=== PATIENT | female | born 1990 | race African-American/Black ===

== ENCOUNTER 2017-06-24 10:32 | Emergency (ER) | payer OTHER ==
[~2017-06-24] VITALS: Ht 172.7 cm; Wt 52.2 kg
[2017-06-24 10:38] VITALS: BP 131/73
== END 2017-06-24 11:08 | disposition home or self-care (01) ==
LOC: ER 10:38
DX: J40 Bronchitis, not specified as acute or chronic (principal)
CPT/HCPCS: 99283; A4606; Z7610

== ENCOUNTER 2018-05-26 21:35 | Emergency (ER) | payer OTHER ==
[~2018-05-26] VITALS: Ht 172.7 cm; Wt 49.0 kg
[2018-05-26 21:53] VITALS: BP 100/76
--- NOTE | 2018-05-26 23:49 | NUR ---
CALLED PT'S NAME THREE TIMES, NO RESPONSE. PT LEFT WITHOUT BEING TRIAGED
== END 2018-05-26 23:51 | disposition left against medical advice (07) ==
LOC: ER 21:35
DX: Z53.21 Procedure and treatment not carried out due to patient leaving prior to being seen by health care provider (principal)
CPT/HCPCS: A4606; Z7610

== ENCOUNTER 2020-11-21 12:54 | Emergency (ER) | payer OTHER ==
[~2020-11-21] VITALS: Ht 172.7 cm; Wt 52.2 kg
[2020-11-21] MEDS ORDERED: HYDROCODONE/APAP 5/325MG TABLET PO ONE (13:30)
[2020-11-21] MEDS ORDERED: HYDROCODONE/APAP 5/325MG TABLET ONE (13:58)
[2020-11-21] MEDS ORDERED: LIDOCAINE HCL/MPF 1% 30 ML VIAL IJ ONE (14:16)
[2020-11-21] MEDS ORDERED: SULF1TAB48 PO (14:43)
[2020-11-21 14:51] VITALS: BP 115/70
--- NOTE | 2020-11-21 14:51 | NUR ---
Patient discharged to home in stable condition. Written and verbal after care instructions given. Patient verbalizes understanding of instruction. Pt ambulatory with a steady gait
[2020-11-21] MEDS ORDERED: LIDOCAINE HCL/PF 1% 30 ML VIAL IM ONE (15:00)
== END 2020-11-21 14:51 | disposition home or self-care (01) ==
LOC: ER 12:57
DX: N75.1 Abscess of Bartholin's gland (principal)
CPT/HCPCS: 99284; J3490

== ENCOUNTER 2021-05-05 15:07 | Emergency (ER) | payer OTHER ==
[~2021-05-05] VITALS: Ht 175.3 cm; Wt 52.2 kg
[~2021-05-05 15:07] MED LIST: SULF1TAB48 PO
[2021-05-05 15:45] VITALS: BP 107/63
[2021-05-05] MEDS ORDERED: CEPH500C2 PO (16:04)
[2021-05-05] MEDS ORDERED: SULF1TAB48 PO (16:04)
--- NOTE | 2021-05-05 16:19 | NUR ---
Patient discharged to home in stable condition. Written and verbal after care instructions given. Patient verbalizes understanding of instruction.
== END 2021-05-05 16:19 | disposition home or self-care (01) ==
LOC: ER 15:21
DX: N75.1 Abscess of Bartholin's gland (principal); Z79.899 Other long term (current) drug therapy

== ENCOUNTER 2021-07-04 14:34 | Emergency (ER) | payer OTHER ==
[~2021-07-04] VITALS: Ht 172.7 cm; Wt 49.0 kg
[~2021-07-04 14:34] MED LIST changes: +CEPH500C2 PO
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
[2021-07-04] MEDS ORDERED: IV NS 0.9% 1,000 ML BAG IV ONE (16:00)
--- NOTE | 2021-07-04 16:08 | NUR ---
BLOOD SAMPLE OBTAINED AND SENT TO LAB
[2021-07-04 16:29] LABS: BASOPHILS % (AUTO) 0.3 % (0.0-2.0); HEMATOCRIT 39 % (33-45); HEMOGLOBIN 13.2 g/dL (11.5-14.8); LYMPHOCYTES # (AUTO) 2.8 K/uL (0.8-4.8); LYMPHOCYTES % (AUTO) 24.6 % (20.0-44.0); MEAN CORPUSCULAR HGB CONC 34 g/dl (31.0-36.0); MEAN CORPUSCULAR VOLUME 92 fL (82-100); MONOCYTES # (AUTO) 0.7 K/uL (0.1-1.30); MONOCYTES % (AUTO) 5.8 % (2.0-12.0); NEUTROPHILS # (AUTO) 7.8 K/uL (1.8-8.9); NEUTROPHILS % (AUTO) 68.3 % (43.0-81.0); PLATELET COUNT (AUTO) 354 K/uL (150-450); RED BLOOD CELL COUNT(AUTO) 4.17 MIL/uL (4.0-5.2); WHITE BLOOD COUNT (AUTO) 11.4 K/uL (4.3-11.0)
[2021-07-04 16:49] LABS: ALBUMIN 4.3 g/dL (3.4-5.0); BILIRUBIN,DIRECT 0.2 mg/dL (0.0-0.2); BILIRUBIN,TOTAL 0.7 mg/dL (0.2-1.0); CREATININE 0.7 mg/dL (0.6-1.3); POTASSIUM 3.6 mmol/L (3.5-5.1); TOTAL PROTEIN, SERUM 7.9 g/dL (6.4-8.2)
--- NOTE | 2021-07-04 16:49 | NUR ---
PT IS O+ NO NEED FOR RHOGAM
[2021-07-04 17:34] LABS: BILIRUBIN,URINE Negative (NEGATIVE); COLOR,URINE RED (YELLOW); LEUKOCYTE ESTERASE ,URINE Trace (NEGATIVE); NITRITE, URINE Negative (NEGATIVE); PH,URINE 6.5 (5.0-8.0); PROTEIN,URINE 100 mg/dl (NEGATIVE); UGLUCOSE Negative (NEGATIVE); UROBILINOGEN,URINE 0.2 EU/dL (0.2)
[2021-07-04 17:37] LABS: BACTERIA,URINE Few /HPF (None Seen); RBC,URINE 21-50 /HPF (0-2); SQUAMOUS EPITHELIAL CELL,UR Few /HPF (None Seen)
[2021-07-04] MEDS ORDERED: TRAM50TA2 PO (17:44)
[2021-07-04] MEDS ORDERED: ONDA4TAB5 PO (17:44)
[2021-07-04] MEDS ORDERED: IBUP-1955 PO (17:44)
[2021-07-04 17:54] VITALS: BP 100/65
== END 2021-07-04 17:50 | disposition home or self-care (01) ==
LOC: ER 14:37
DX: N94.89 Other specified conditions associated with female genital organs and menstrual cycle (principal); R10.2 Pelvic and perineal pain; F17.200 Nicotine dependence, unspecified, uncomplicated; Z79.899 Other long term (current) drug therapy
CPT/HCPCS: 36415; 76856; 80048; 80076; 81001; 84702; 85025; 85730; 96360; 99284; J7030

== ENCOUNTER 2022-08-03 19:33 | Emergency (ER) | payer OTHER ==
[~2022-08-03] VITALS: Ht 172.7 cm; Wt 49.9 kg
[~2022-08-03 19:33] MED LIST changes: +IBUP-1955 PO; +ONDA4TAB5 PO; +TRAM50TA2 PO
[2022-08-03 19:57] VITALS: BP 106/58
--- NOTE | 2022-08-03 20:06 | NUR ---
BIBSELF C/O CYST ON GROIN X8DAYS. I&D DONE ON BUT STILL PAINFUL. ON ATB. PT A/OX4. TOLERATING R/A WELL WITH NO RESP DISTRESS. PT IN GOWN. SAFETY MEASURES IN PLACE.
[2022-08-03] MEDS ORDERED: KETOROLAC TROMETHAMINE INJ 60 MG/2 ML VIAL IM ONE (20:30)
[2022-08-03] MEDS ORDERED: KETOROLAC TROMETHAMINE INJ 30 MG/ML VIAL ONE (20:33)
== END 2022-08-03 20:49 | disposition home or self-care (01) ==
LOC: ER 19:37
DX: N75.1 Abscess of Bartholin's gland (principal); F17.200 Nicotine dependence, unspecified, uncomplicated
CPT/HCPCS: 99284; 96372; J1885

== ENCOUNTER 2023-01-13 11:50 | Emergency (ER) | payer OTHER ==
[~2023-01-13] VITALS: Ht 172.7 cm; Wt 52.2 kg
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
--- NOTE | 2023-01-13 12:15 | NUR ---
AT BEDSIDE FOR EVAL.
[2023-01-13] MEDS ORDERED: CLIN300C12 PO (12:27)
[2023-01-13] MEDS ORDERED: KETOROLAC TROMETHAMINE INJ 60 MG/2 ML VIAL IM ONE (12:30)
[2023-01-13] MEDS ORDERED: CLINDAMYCIN HCL 150 MG CAPSULE PO ONE (12:30)
[2023-01-13] MEDS ORDERED: CLINDAMYCIN HCL 150 MG CAPSULE ONE (12:39)
[2023-01-13] MEDS ORDERED: KETOROLAC TROMETHAMINE INJ 30 MG/ML VIAL ONE (12:39)
[2023-01-13] MEDS ORDERED: IBUP-1955 PO (12:52)
--- NOTE | 2023-01-13 12:57 | NUR ---
Patient discharged to home in stable condition. Written and verbal after care instructions given. Patient verbalizes understanding of instruction.
[2023-01-13 12:58] VITALS: BP 96/71
== END 2023-01-13 12:59 | disposition home or self-care (01) ==
LOC: ER 11:54
DX: N76.0 Acute vaginitis (principal); F17.200 Nicotine dependence, unspecified, uncomplicated; Z79.899 Other long term (current) drug therapy
CPT/HCPCS: 99284; 96372; J1885

== ENCOUNTER 2023-01-19 17:41 | Emergency (ER) | payer OTHER ==
[~2023-01-19] VITALS: Ht 175.3 cm; Wt 52.2 kg
[~2023-01-19 17:41] MED LIST changes: +CLIN300C12 PO
[2023-01-19 18:07] VITALS: BP 107/62
[2023-01-19 19:05] LABS: BILIRUBIN,URINE NEGATIVE (NEGATIVE); COLOR,URINE YELLOW (YELLOW); LEUKOCYTE ESTERASE ,URINE NEGATIVE (NEGATIVE); NITRITE, URINE NEGATIVE (NEGATIVE); PROTEIN,URINE NEGATIVE (NEGATIVE); UGLUCOSE NEGATIVE (NEGATIVE); UROBILINOGEN,URINE 0.2 EU/dL (0.2)
--- NOTE | 2023-01-19 19:05 | NUR ---
C/O VAGINAL CYST. DENIES ANY DISCHARGE OR BLEDDING FROM SITE.
[2023-01-19 19:18] LABS: BACTERIA,URINE None seen /HPF (None Seen); RBC,URINE NONE SEEN /HPF (0-2); SQUAMOUS EPITHELIAL CELL,UR Many /HPF (None Seen); WBC,URINE NONE SEEN /HPF (0-3)
[2023-01-19] MEDS ORDERED: LIDOCAINE HCL/MPF 1% 30 ML VIAL IJ ONE (19:36)
--- NOTE | 2023-01-19 19:38 | NUR ---
PT EXAMINED BY DR FLEMING WITH FEMALE RN INDUSTRIAL TRUCK MECHANIC
[2023-01-19] MEDS ORDERED: KETOROLAC TROMETHAMINE INJ 30 MG/ML VIAL ONE (19:58)
[2023-01-19] MEDS ORDERED: KETOROLAC TROMETHAMINE INJ 30 MG/ML VIAL IM ONE (20:00)
[2023-01-19] MEDS ORDERED: LIDOCAINE /MPF 1% VIAL 5 ML VIAL TP ONE (20:00)
--- NOTE | 2023-01-19 21:10 | NUR ---
I&D DONE BY DR FLEMING WITH FEMALE RN COMPUTER ART INSTRUCTOR
[2023-01-19] MEDS ORDERED: CLIN300C12 PO (21:25)
[2023-01-19] MEDS ORDERED: FLUC150T PO (21:25)
--- NOTE | 2023-01-19 22:02 | NUR ---
Patient discharged to home in stable condition. RX Written and verbal after care instructions given. Patient verbalizes understanding of instruction.
== END 2023-01-19 22:03 | disposition home or self-care (01) ==
LOC: ER 17:49
DX: N75.1 Abscess of Bartholin's gland (principal); F17.210 Nicotine dependence, cigarettes, uncomplicated; Z79.1 Long term (current) use of non-steroidal anti-inflammatories (NSAID); Z79.2 Long term (current) use of antibiotics; Z79.899 Other long term (current) drug therapy
CPT/HCPCS: 99284; 56420; 84703; 81001; 96372; J1885; J3490

== ENCOUNTER 2023-04-07 12:54 | Emergency (ER) | payer OTHER ==
[~2023-04-07] VITALS: Ht 172.7 cm; Wt 52.2 kg
[~2023-04-07 12:54] MED LIST changes: +FLUC150T PO
[2023-04-07] MEDS ORDERED: IBUPROFEN 600 MG TABLET PO ONE (13:30)
[2023-04-07] MEDS ORDERED: IBUPROFEN 600 MG TABLET ONE (13:35)
[2023-04-07] MEDS ORDERED: IBUP-1953 PO (14:24)
[2023-04-07 14:55] VITALS: BP 110/69; TEMP 98.4; O2SAT 96
== END 2023-04-07 14:55 | disposition home or self-care (01) ==
LOC: ER 12:58
DX: M62.830 Muscle spasm of back (principal); F17.200 Nicotine dependence, unspecified, uncomplicated; Z79.899 Other long term (current) drug therapy
CPT/HCPCS: 71045-TC

== ENCOUNTER 2025-02-10 00:14 | Emergency (ER) | payer OTHER ==
[~2025-02-10] VITALS: Ht 175.3 cm; Wt 54.0 kg
[~2025-02-10 00:14] MED LIST changes: +IBUP-1953 PO
[2025-02-10] MEDS ORDERED: KETOROLAC TROMETHAMINE INJ 30 MG/ML VIAL ONE (01:27)
[2025-02-10] MEDS: KETOROLAC TROMETHAMINE INJ 30 MG/ML VIAL IM ONE (01:36)
[2025-02-10] MEDS ORDERED: CEFI400C4 PO (02:05)
[2025-02-10] MEDS ORDERED: CLIN300C12 PO (02:05)
[2025-02-10 02:32] VITALS: BP 121/64; TEMP 98.8; O2SAT 97
== END 2025-02-10 02:36 | disposition home or self-care (01) ==
LOC: ER 00:16
DX: N75.1 Abscess of Bartholin's gland (principal); F17.200 Nicotine dependence, unspecified, uncomplicated; Z79.899 Other long term (current) drug therapy
CPT/HCPCS: 99284; 56420; 96372; J1885